=== PATIENT | male | born 1960 | race Caucasian/White ===

== ENCOUNTER 2017-07-10 15:37 | Emergency (ER) | payer BC ==
[~2017-07-10] VITALS: Ht 172.7 cm; Wt 106.6 kg
[~2017-07-10 15:37] MED LIST: Z.0.LASIX40 MG MT; Z.0.LIPITOR40 MG MT; Z.0.METOPROLOL TART5 MT; Z.0.PLAVIX75 MG MT; Z.0.SYNTHROID150 MCG MT; Z.0.TRICOR145 MG MT; Z.0.ZETIA10 MG MT
[2017-07-10] MEDS ORDERED: MORPHINE SULFATE 4 MG/ML SYR IV STA (16:13)
[2017-07-10] MEDS ORDERED: HYDROCODONE/APAP 10MG-325MG TAB PO ONE (16:15)
[2017-07-10] MEDS ORDERED: ONDANSETRON HCL 4 MG ORAL DISINTEGRATING TAB PO ONE (16:15)
[2017-07-10] MEDS ORDERED: MORPHINE SULFATE 2 MG/ML SYR IV NR (16:30)
--- NOTE | 2017-07-10 17:37 | Diagnostic Imaging Report ---
Left hip with AP pelvis 4- views, Left femur 5 views HISTORY: Pain COMPARISON: None FINDINGS: No displaced fracture. Osseous alignment is within normal limits. Mild degenerative changes of the hip joint bilaterally. Broad-based exostosis in the posterior aspect of the distal metadiaphysis of the femur. Non-fused posterior element of S1. IMPRESSION: No acute osseous abnormality. Signed by: Dr. Piper Herrmann M.D. on 07/10/2017 5:34 PM
--- NOTE | 2017-07-10 18:34 | Diagnostic Imaging Report ---
EXAM: CT Pelvis and left femur WITHOUT contrast INDICATION: Pain status post fall. COMPARISON: None. TECHNIQUE: Pelvis were scanned utilizing a multidetector helical scanner from the iliac crest to the pubic symphysis without administration of IV contrast. Following this, axial scans were obtained of the left femur from the left hip to the knee. Coronal and sagittal reformations were obtained. Routine protocol was performed. IV CONTRAST: None. ORAL CONTRAST: Water RADIATION DOSE: Total DLP: 462.33 mGy*cm Estimated effective dose: (DLP x 0.015 x size factor) mSv COMPLICATIONS: None FINDINGS: LINES and TUBES: None. GI TRACT: No abnormal distention, wall thickening, or evidence of bowel obstruction. Descending and sigmoid colon diverticulosis without CT evidence of diverticulitis. The appendix is unremarkable. PELVIC ORGANS/BLADDER: Unremarkable. LYMPH NODES: No lymphadenopathy. VESSELS: Unremarkable. PERITONEUM / RETROPERITONEUM: No free air or fluid. BONES: No acute fracture or dislocation. No displaced fractures. Small sclerotic lesions scattered throughout the pelvic bones suggestive of bone islands. Small ossicle abutting the left greater trochanter on image 96 series 501 suggestive of an enthesophyte. There is bilateral iliac crest enthesopathy. There is an approximately 3.0 cm broad-based exostosis of the posterior medial aspect of the left femoral distal metadiaphysis. SOFT TISSUES: There is mild subcutaneous edema in the anterior distal thigh to the level of the patella. There is mild prominence on the anterolateral left thigh musculature with loss of normal in striation, which may be in part related to beam hardening artifact, however, which may also reflect an ill-defined intramuscular hematoma as seen on axial image 69 series 3. Bilateral small fat-containing inguinal hernias. IMPRESSION: 1. No acute osseous abnormality. No displaced fracture. 2. Findings suggestive of mild muscle edema, possibly with mild intramuscular hematoma involving the left anterolateral thigh musculature. 3. Approximately 3.0 cm broad-based exostosis of the posterior medial aspect of the left femoral metadiaphysis without suspicious features. Signed by: Dr. Piper Herrmann M.D. on 07/10/2017 6:30 PM
[2017-07-10 18:39] LABS: BASOPHILS # (AUTO) 0.1 (0.0-0.1); BASOPHILS % 0.4 % (0.0-1.0); EOSINOPHILS # (AUTO) 0.1 (0.0-0.4); EOSINOPHILS % 0.7 % (0.0-6.0); HEMATOCRIT 43.1 % (38.2-49.6); HEMOGLOBIN 15.2 g/dL (14.0-18.0); LYMPHOCYTES # (AUTO) 3.9 (1.0-3.2); LYMPHOCYTES % 19.5 % (18.0-39.1); MEAN CORPUSCULAR HEMOGLOBIN 30.3 pg (28-32); MEAN CORPUSCULAR HGB CONC 35.3 g/dL (31-35); MEAN CORPUSCULAR VOLUME 85.9 fL (81-99); MONOCYTES # (AUTO) 1.1 (0.2-0.8); MONOCYTES % 5.6 % (4.4-11.3); NEUTROPHILS # (AUTO) 14.4 (2.1-6.9); NEUTROPHILS % 72.3 % (38.7-80.0); PLATELET COUNT 250 x10e3/uL (140-360); RED BLOOD COUNT 5.02 x10e6/uL (4.3-5.7); RED CELL DISTRIBUTION WIDTH 13.2 % (11.7-14.4)
[2017-07-10 18:42] LABS: INR 0.82; PROTHROMBIN TIME 11.7 seconds (11.9-14.5)
[2017-07-10 18:43] LABS: PARTIAL THROMBOPLASTIN TIME 26.9 seconds (23.8-35.5)
[2017-07-10 18:49] LABS: ALANINE AMINOTRANSFERASE 25 IU/L (0-55); ALBUMIN 3.8 g/dL (3.5-5.0); ALBUMIN/GLOBULIN RATIO 1.4 (0.8-2.0); ALKALINE PHOSPHATASE 72 IU/L (40-150); ANION GAP 14.2 mmol/L (8-16); BLOOD UREA NITROGEN 25 mg/dL (7-26); BUN/CREATININE RATIO 22 (6-25); CALCIUM 8.9 mg/dL (8.4-10.2); CARBON DIOXIDE 24 mmol/L (22-29); CHLORIDE 103 mmol/L (98-107); CREATININE, SERUM 1.15 mg/dL (0.72-1.25); EST GLOMERULAR FILTRATION RATE > 60 ML/MIN (60-); GLUCOSE 213 mg/dL (74-118); POTASSIUM 4.2 mmol/L (3.5-5.1); SODIUM 137 mmol/L (136-145)
== END 2017-07-10 19:57 | disposition home or self-care (01) ==
LOC: ER 15:37
DX: S70.02XA Contusion of left hip, initial encounter (principal); S70.12XA Contusion of left thigh, initial encounter; W01.0XXA Fall on same level from slipping, tripping and stumbling without subsequent striking against object, initial encounter; Y92.008 Other place in unspecified non-institutional (private) residence as the place of occurrence of the external cause; E11.9 Type 2 diabetes mellitus without complications; I25.2 Old myocardial infarction; Z95.1 Presence of aortocoronary bypass graft; Z95.5 Presence of coronary angioplasty implant and graft; Z95.810 Presence of automatic (implantable) cardiac defibrillator
CPT/HCPCS: 36415; 72192; 80053; 85025; 85610; 85730; 99284

== ENCOUNTER 2020-09-19 08:05 | Emergency (ER) | payer BC ==
[~2020-09-19] VITALS: Ht 172.7 cm; Wt 106.6 kg
== END 2020-09-19 08:39 | disposition home or self-care (01) ==
LOC: ER 08:20
DX: U07.1 COVID-19 (principal); R06.02 Shortness of breath; R05 Cough; I10 Essential (primary) hypertension; E78.5 Hyperlipidemia, unspecified; I25.10 Atherosclerotic heart disease of native coronary artery without angina pectoris; Z95.5 Presence of coronary angioplasty implant and graft
CPT/HCPCS: 99281

== ENCOUNTER → 2024-12-03 | Day surgery (SDC) | payer BC ==
[2024-11-26 12:53] LABS: BASOPHILS % 0.4 % (0.0-1.0); EOSINOPHILS # (AUTO) 0.2 (0.0-0.4); EOSINOPHILS % 2.2 % (0.0-6.0); LYMPHOCYTES # (AUTO) 3.1 (1.0-3.2); LYMPHOCYTES % 29.6 % (18.0-39.1); MEAN CORPUSCULAR HEMOGLOBIN 30.1 pg (28-32); MEAN CORPUSCULAR HGB CONC 34.7 g/dL (31-35); MEAN CORPUSCULAR VOLUME 86.7 fL (81-99); MONOCYTES # (AUTO) 0.7 (0.2-0.8); MONOCYTES % 7.1 % (4.4-11.3); NEUTROPHILS # (AUTO) 6.2 (2.1-6.9); NEUTROPHILS % 60.3 % (38.7-80.0); PLATELET COUNT 208 x10e3/uL (140-360); RED BLOOD COUNT 5.65 x10e6/uL (4.3-5.7); RED CELL DISTRIBUTION WIDTH 13.8 % (11.7-14.4); WHITE BLOOD COUNT 10.32 x10e3/uL (4.8-10.8)
[~2024-12-03] MED LIST changes: +B-121000 MCG PO; +EFFIENT10 MG PO; +ENTRESTO 49 MG1 EACH PO; +FARXIGA10 MG PO; +GLUCAGON FOR INJ 1 MG VIAL ONE; +HYOSCYAMINE SULFATE 0.5 MG/ML INJ ONE; +ISOSORBIDE MONO20 MG PO; +LIDOCAINE HCL 2% LOCAL INJ 5 ML SDV VIAL INJ ONE; +METFORMIN HCL500 MG PO; +METOPROLOL SUCC25 MG PO; +ONDANSETRON HCL INJ 2MG/ML 2ML 2 MG/ML VIAL ONE; +OZEMPIC2 MG/0.75; +PANTOPRAZOLE SO40 MG PO; +PROPOFOL IV EMULSION 10 MG/ML 20 ML VIAL ONE; +RANOLAZINE ER500 MG PO; +REPATHA SU140 MG/1 M; -Z.0.LASIX40 MG MT; +Z.0.LASIX40 MG PO; -Z.0.SYNTHROID150 MCG MT; +Z.0.SYNTHROID150 MCG PO
[2024-12-03] MEDS: LACTATED RINGER'S 1,000 ML ONE (06:38)
[2024-12-03 08:55] VITALS: TEMP 98.8
[2024-12-03 09:25] VITALS: BP 134/80; PULSE 69; RESP 16; O2SAT 96
== END | disposition home or self-care (01) ==
LOC: OR 06:08
PROVIDERS: ATTEND Internal Medicine Gastroenterology
DX: Z09 Encounter for follow-up examination after completed treatment for conditions other than malignant neoplasm (principal); D12.3 Benign neoplasm of transverse colon; D12.4 Benign neoplasm of descending colon; D12.5 Benign neoplasm of sigmoid colon; K55.20 Angiodysplasia of colon without hemorrhage; K52.9 Noninfective gastroenteritis and colitis, unspecified; K57.30 Diverticulosis of large intestine without perforation or abscess without bleeding; K64.8 Other hemorrhoids; K21.9 Gastro-esophageal reflux disease without esophagitis; E11.9 Type 2 diabetes mellitus without complications; I25.810 Atherosclerosis of coronary artery bypass graft(s) without angina pectoris; E78.5 Hyperlipidemia, unspecified; E03.9 Hypothyroidism, unspecified; I25.2 Old myocardial infarction; F17.210 Nicotine dependence, cigarettes, uncomplicated; Z01.810 Encounter for preprocedural cardiovascular examination; Z01.812 Encounter for preprocedural laboratory examination; Z79.84 Long term (current) use of oral hypoglycemic drugs; Z79.899 Other long term (current) drug therapy; Z95.5 Presence of coronary angioplasty implant and graft; Z95.810 Presence of automatic (implantable) cardiac defibrillator; Z85.828 Personal history of other malignant neoplasm of skin; Z95.1 Presence of aortocoronary bypass graft
CPT/HCPCS: 36415 ×2; 45380; 45385; 82948; 85025; 93005; J1610; J1980; J2003; J2405; J2704; J7121; 45378